=== PATIENT | male | born 1975 | race American Indian/Alaskan Native ===

== ENCOUNTER 2019-09-07 12:04 | Emergency (ER) | payer SELFPAY ==
[2019-09-07 12:09] VITALS: BP 164/92
--- NOTE | 2019-09-07 12:31 | Emergency Department Report ---
Chief Complaint: Psych Stated Complaint: MEDICAL CLEARANCE Time Seen by Provider: 09/07/19 12:14 - HPI History of Present Illness: This is a 44-year-old male nontoxic, well in appearance with no signs of distress presents to the ED for medication refill. Patient stated [place] state and has not taken his psych or blood pressure medications. Patient denies any SI/HI. Patient stated he is asymptotic. Denies hearing voices. Patient stated he is not remember his medications name or dosage. Patient denies any urinary symptoms. Patient denies any fever, chills, headache, nausea, vomiting, chest pain or shortness of breathe. Denies any other symptoms or complaints. Denies any allergies or PMH. - Exam Vital Signs: Vital Signs 09/07/19 12:08 Temperature 98.0 F Pulse Rate 90 Respiratory 16 Rate Blood Pressure 164/92 O2 Sat by Pulse 99 Oximetry Physical Exam: No SI/HI. Normal affect. No visual or auditory hallucinations. Denies any symptoms. MSE screening note: Focused history and physical exam performed. Due to findings the following was ordered: ED Medical Decision Making - Medical Decision Making 44-year-old male that presents with medications refill. Patient does not know the medication name or dosages that he takes. Patient was given a phone to call his for medication names and dosages. RN stated to me that patient ELOPED. I had the tech to see if patient is outside to bring him back but patient was not there. Patient ELOPED. I did get in touch with Mrs. Toure () at [phone] and was told to have patient come back for further evaluation and medication refill. ED Disposition for MSE Clinical Impression: Medication refill Disposition: Z-07 ELOPED Condition: Stable
== END 2019-09-07 12:35 | disposition left against medical advice (07) ==
LOC: ED 12:04
DX: F32.89 Other specified depressive episodes (principal); Z76.0 Encounter for issue of repeat prescription
CPT/HCPCS: 99281

== ENCOUNTER 2019-09-08 11:49 | Emergency (ER) | payer SELFPAY ==
[2019-09-08 11:58] VITALS: BP 159/104
--- NOTE | 2019-09-08 12:19 | Emergency Department Report ---
ED Recheck HPI - General Chief Complaint: Medical Clearance Stated Complaint: BI POLAR Time Seen by Provider: 09/08/19 12:13 Source: patient Mode of arrival: Ambulatory Limitations: No Limitations - History of Present Illness Initial Comments: This is a 44-year-old male nontoxic, well nourished in appearance, no acute signs of distress presents to the ED for medications refill. Patient denies any SI/HI. Patient was here yesterday and ELOPEd. Denies any new symptoms. Denies any chest pain, shortness of breathe, fever, chills, headache, stiff neck, numbness, tingling. Patient denies any allergies. Patient has all his medications list for refill. -: days(s) Returns Today for: request for prescription Symptoms Since Prior Visit: no new symptoms Associated Symptoms: none. denies: fever, chills, chest pain, shortness of breath, rash, malaise, nasuea, abdominal pain - Related Data Allergies Allergy/AdvReac Type Severity Reaction Status Date / Time No Known Allergies Allergy Unverified 09/07/19 12:07 ED Review of Systems ROS: Stated complaint: BI POLAR Other details as noted in HPI Constitutional: denies: chills, fever Eyes: denies: eye pain, eye discharge, vision change ENT: denies: ear pain, throat pain Respiratory: denies: cough, shortness of breath, wheezing Cardiovascular: denies: chest pain, palpitations Endocrine: no symptoms reported Gastrointestinal: denies: abdominal pain, nausea, diarrhea Genitourinary: denies: urgency, dysuria Musculoskeletal: denies: back pain, joint swelling, arthralgia Skin: denies: rash, lesions Neurological: denies: headache, weakness, paresthesias Psychiatric: denies: anxiety, depression Hematological/Lymphatic: denies: easy bleeding, easy bruising ED Past Medical Hx - Past Medical History Previous Medical History?: Yes Hx Hypertension: Yes Hx Psychiatric Treatment: Yes (Bi polar) - Surgical History Past Surgical History?: No - Social History Smoking Status: Never Smoker Substance Use Type: Alcohol, Marijuana ED Physical Exam - General Limitations: No Limitations General appearance: alert, in no apparent distress - Head Head exam: Present: atraumatic, normocephalic - Eye Eye exam: Present: normal appearance - Neck Neck exam: Present: normal inspection, full ROM - Respiratory Respiratory exam: Present: normal lung sounds bilaterally. Absent: respiratory distress, wheezes, rales, rhonchi, stridor, chest wall tenderness, accessory muscle use, decreased breath sounds, prolonged expiratory - Cardiovascular Cardiovascular Exam: Present: regular rate, normal rhythm, normal heart sounds. Absent: bradycardia, tachycardia, irregular rhythm, systolic murmur, diastolic murmur, rubs, gallop - Extremities Exam Extremities exam: Present: normal inspection, full ROM - Back Exam Back exam: Present: normal inspection, full ROM - Neurological Exam Neurological exam: Present: alert, oriented X3, normal gait - Psychiatric Psychiatric exam: Present: normal affect, normal mood - Skin Skin exam: Present: warm, dry, intact, normal color. Absent: rash ED Course Vital Signs 09/08/19 11:55 Temperature 98.4 F Pulse Rate 71 Respiratory 18 Rate Blood Pressure 159/104 O2 Sat by Pulse 98 Oximetry - Reevaluation(s) Reevaluation #1: 09/08/19 12:17 Patient is speaking in full sentences with no signs of distress noted. ED Recheck MDM - Medical Decision Making 44-year-old male the presents with medication refill. Patient is stable and was examined by me. Patient has been refilled with proper dosages as patients medicaiotn list stated. Patient was given referrals to follow-up with primary care doctor and [facility]. At time of discharge, the patient does not seem toxic or ill in appearance. No acute signs of distress noted. Patient agrees to discharge treatment plan of care. No further questions noted by the patient. Critical care attestation.: If time is entered above; I have spent that time in minutes in the direct care of this critically ill patient, excluding procedure time. ED Disposition Clinical Impression: Medication refill Disposition: - MED SCREENING EXAM-LEFT Is pt being admited?: No Does the pt Need Aspirin: No Condition: Stable Additional Instructions: Follow-up with a primary care doctor in 3-5 days or if symptoms worsen and continue return to emergency room as soon as possible. Referrals: PRIMARY CAREMD [Referring] - 3-5 Days MALIK GONZALEZ MD [Staff Physician] - 3-5 Days [facility] [Outside] - 3-5 Days
== END 2019-09-08 12:44 | disposition left against medical advice (07) ==
LOC: ED 11:49
DX: I10 Essential (primary) hypertension (principal); F31.9 Bipolar disorder, unspecified; F12.20 Cannabis dependence, uncomplicated; Z76.0 Encounter for issue of repeat prescription
CPT/HCPCS: 99282

== ENCOUNTER 2020-06-25 22:42 | Emergency (ER) | payer SELFPAY ==
[2020-06-26 01:46] LABS: Basophils % (Auto) 0.3 % (0.0-1.8); Eosinophils # (Auto) 0.2 K/mm3 (0.0-0.4); Eosinophils % (Auto) 1.7 % (0.0-4.3); Hematocrit 44.2 % (35.5-45.6); Hemoglobin 15.3 gm/dl (11.8-15.2); Lymphocytes # (Auto) 3.2 K/mm3 (1.2-5.4); Lymphocytes % (Auto) 30.2 % (13.4-35.0); Mean Corpuscular HGB Conc 35 % (32-34); Mean Corpuscular Volume 85 fl (84-94); Monocytes # (Auto) 0.6 K/mm3 (0.0-0.8); Monocytes % (Auto) 5.8 % (0.0-7.3); Platelet Count 227 K/mm3 (140-440); Red Blood Count 5.22 M/mm3 (3.65-5.03); Red Cell Distribution Width 14.9 % (13.2-15.2)
[2020-06-26 02:04] LABS: BUN/Creatinine Ratio 11; Blood Urea Nitrogen 11 mg/dL (9-20); Calcium 10.1 mg/dL (8.4-10.2); Hemolysis Index 7
[2020-06-26 02:58] LABS: Bilirubin,Urine NEG (Negative); Blood,Urine NEG (Negative); Color,Urine Yellow (Yellow); Mucus,Urine FEW /HPF; Protein,Urine <15 mg/dL mg/dL (Negative)
[2020-06-26 03:04] LABS: Amphetamine Screen,Urine Negative; Benzodiazepines Screen,Urine Negative; Methadone Screen,Urine Negative; Opiate Screen,Urine Negative
[2020-06-26] MEDS ORDERED: HALOPERIDOL LACTATE 5 MG/1 ML INJ IM PRN (03:14)
[2020-06-26] MEDS ORDERED: LORazepam 2 MG/ML VIAL IM PRN (03:14)
[2020-06-26] MEDS ORDERED: ALPRAZolam 1 MG TAB PO ONE (03:16)
--- NOTE | 2020-06-26 03:18 | Emergency Department Report ---
ED General Adult HPI - General Chief complaint: Psych Stated complaint: psych PUI?: No Time Seen by Provider: 06/26/20 03:00 Source: patient, RN notes reviewed, old records reviewed Mode of arrival: Ambulatory Limitations: Other (Acute psychosis) - History of Present Illness Initial comments: The patient was evaluated in the emergency department for symptoms described in the history of present illness. He/she was evaluated in the context of the global COVID-19 pandemic, which necessitated consideration that the patient migh t be at risk for infection with the virus that causes COVID-19. Institutional protocols and algorithms that pertain to the evaluation of patients at risk for COVID-19 are in a state of rapid change based on information released by regulatory bodies including the CDC and federal and state organizations. These policies and algorithms were followed during the patient's care in the emergency department. Please note that these policies, procedures and recommendations changed on a rapid basis. The patient is a 44-year-old gentleman. He presents to the ER with a request for psychiatric evaluation. He states that he is "off my medications", and reports hallucinations, suicidality, and indicates that he attempted to overdose approximately 2 days ago. He denies physical pain. He does not know what he "overdosed" on, but states "it was psychotropic medication." He denies headache, neck pain, chest pain, abdominal pain, shortness of breath, urinary symptoms, loss of taste and loss of smell. He states that he walked here. He does not have a primary doctor that he is aware of. He does not describe the exacerbating nature of his symptoms, qualitative nature of his symptoms, relieving factors, aggravating factors, etc. He is not accompanied by friends or family at this time for additional information or collateral information. He reports he is experiencing hallucinations -: Gradual Quality: other Consistency: other Improves with: other Worsens with: other Associated Symptoms: other - Related Data Allergies Allergy/AdvReac Type Severity Reaction Status Date / Time No Known Allergies Allergy Unverified 09/07/19 12:07 ED Review of Systems ROS: Stated complaint: MED REFILL(BIPOLAR) Other details as noted in HPI Constitutional: denies: fever Eyes: denies: eye discharge ENT: denies: epistaxis Respiratory: denies: cough Cardiovascular: denies: syncope Gastrointestinal: denies: abdominal pain Genitourinary: denies: dysuria Psychiatric: anxiety, auditory hallucinations, visual hallucinations, suicidal thoughts ED Past Medical Hx - Past Medical History Previous Medical History?: Yes Hx Hypertension: Yes Hx Psychiatric Treatment: Yes (Bi polar) - Surgical History Past Surgical History?: No - Social History Smoking Status: Current Some Day Smoker ED Physical Exam - General Limitations: Other (Acute psychosis) General appearance: anxious - Head Head exam: Present: atraumatic, normocephalic - Eye Eye exam: Present: normal appearance, EOMI. Absent: nystagmus - ENT ENT exam: Present: normal exam, normal orophraynx, mucous membranes moist, normal external ear exam - Neck Neck exam: Present: normal inspection, full ROM. Absent: tenderness, meningismus - Respiratory Respiratory exam: Present: normal lung sounds bilaterally. Absent: respiratory distress, wheezes, rales, rhonchi, stridor, accessory muscle use, decreased breath sounds - Cardiovascular Cardiovascular Exam: Present: regular rate, normal rhythm, normal heart sounds. Absent: bradycardia, tachycardia, irregular rhythm, systolic murmur, diastolic murmur, rubs, gallop - GI/Abdominal GI/Abdominal exam: Present: soft. Absent: distended, tenderness, guarding, rebound, rigid, pulsatile mass - Rectal Rectal exam: Present: deferred - Extremities Exam Extremities exam: Present: normal inspection, full ROM, other (2+ pulses noted in the bilateral upper extremities. There is no long bony tenderness. The muscular compartments are soft.) - Back Exam Back exam: Present: normal inspection, full ROM. Absent: tenderness, CVA tenderness (R), CVA tenderness (L), paraspinal tenderness, vertebral tenderness - Neurological Exam Neurological exam: Present: alert, normal gait, other (No facial droop. Tongue midline. Extraocular movements intact bilaterally. Facial sensation intact to light touch in V1, V2, V3 distribution bilaterally. 5 and a 5 strength in 4 extremities. Sensation intact to light touch in 4 extremities.) - Psychiatric Psychiatric exam: Present: anxious, suicidal ideation - Skin Skin exam: Present: warm, dry, intact, normal color. Absent: rash ED Course Vital Signs 06/26/20 06/26/20 00:27 03:02 Temperature 98.4 F 98.2 F Pulse Rate 81 91 H Respiratory 17 18 Rate Blood Pressure 193/113 Blood Pressure 116/66 [Left] O2 Sat by Pulse 95 97 Oximetry - Reevaluation(s) Reevaluation #1: 06/26/20 03:24 Differential diagnosis, including but not limited to: Acute psychosis, medical clearance for psychiatric placement Assessment and plan: 44-year-old gentleman, with a GCS of 15, nonfocal motor exam, speaking in full sentences, protecting his airway, with a benign and unremarkable physical examination, with the exception of elevated blood pressure, here with acute psychosis. He is placed on 1013. Screening laboratory studies ordered, so far unremarkable. Do not clinically suspect Covid, however, have ordered Covid screening test, in anticipation of psychiatric placement. EKG pending at this time, 1013 form filled out by myself, and psychiatric consultation is requested. Please reference the [employer] clinical policy on asymptomatic hypertension/elevated blood pressure. At this point in time, assuming unremarkable EKG, patient does not appear to have an immediate medical contraindication to psychiatric admission, evaluation, consultation, and placement. ED Medical Decision Making - Lab Data Result diagrams: 06/26/20 01:17 06/26/20 01:17 Vital Signs 06/26/20 06/26/20 00:27 03:02 Temperature 98.4 F 98.2 F Pulse Rate 81 91 H Respiratory 17 18 Rate Blood Pressure 193/113 Blood Pressure 116/66 [Left] O2 Sat by Pulse 95 97 Oximetry Lab Results 06/26/20 06/26/20 06/26/20 Range/Units 01:17 01:17 01:17 WBC (4.5-11.0) K/mm3 RBC (3.65-5.03) M/mm3 Hgb (11.8-15.2) gm/dl Hct (35.5-45.6) % MCV (84-94) fl MCH (28-32) pg MCHC (32-34) % RDW (13.2-15.2) % Plt Count (140-440) K/mm3 Lymph % (Auto) (13.4-35.0) % Buchanan % (Auto) (0.0-7.3) % Eos % (Auto) (0.0-4.3) % Baso % (Auto) (0.0-1.8) % Lymph # (Auto) (1.2-5.4) K/mm3 Buchanan # (Auto) (0.0-0.8) K/mm3 Eos # (Auto) (0.0-0.4) K/mm3 Baso # (Auto) (0.0-0.1) K/mm3 Seg Neutrophils % (40.0-70.0) % Seg Neutrophils # (1.8-7.7) K/mm3 Sodium 140 (137-145) mmol/L Potassium 4.1 (3.6-5.0) mmol/L Chloride 103.4 (98-107) mmol/L Carbon Dioxide 24 (22-30) mmol/L Anion Gap 17 mmol/L BUN 11 (9-20) mg/dL Creatinine 1.0 (0.8-1.3) mg/dL Estimated GFR > 60 ml/min BUN/Creatinine Ratio 11 % Glucose 100 (75-100) mg/dL Calcium 10.1 (8.4-10.2) mg/dL Urine Color (Yellow) Urine Turbidity (Clear) Urine pH (5.0-7.0) Ur Specific Hendricks (1.003-1.030) Urine Protein (Negative) mg/dL Urine Glucose (UA) (Negative) mg/dL Urine Ketones (Negative) mg/dL Urine Blood (Negative) Urine Nitrite (Negative) Urine Bilirubin (Negative) Urine Urobilinogen (<2.0) mg/dL Ur Leukocyte Esterase (Negative) Urine WBC (Auto) (0.0-6.0) /HPF Urine RBC (Auto) (0.0-6.0) /HPF Urine Mucus /HPF Salicylates < 0.3 L (2.8-20.0) mg/dL Urine Opiates Screen Urine Methadone Screen Acetaminophen 5.0 L (10.0-30.0) ug/mL Ur Barbiturates Screen Ur Phencyclidine Scrn Ur Amphetamines Screen U Benzodiazepines Scrn Plasma/Serum Alcohol (0-0.07) % 06/26/20 06/26/20 06/26/20 Range/Units 01:17 01:17 02:20 WBC 10.7 (4.5-11.0) K/mm3 RBC 5.22 H (3.65-5.03) M/mm3 Hgb 15.3 H (11.8-15.2) gm/dl Hct 44.2 (35.5-45.6) % MCV 85 (84-94) fl MCH 29 (28-32) pg MCHC 35 H (32-34) % RDW 14.9 (13.2-15.2) % Plt Count 227 (140-440) K/mm3 Lymph % (Auto) 30.2 (13.4-35.0) % Buchanan % (Auto) 5.8 (0.0-7.3) % Eos % (Auto) 1.7 (0.0-4.3) % Baso % (Auto) 0.3 (0.0-1.8) % Lymph # (Auto) 3.2 (1.2-5.4) K/mm3 Buchanan # (Auto) 0.6 (0.0-0.8) K/mm3 Eos # (Auto) 0.2 (0.0-0.4) K/mm3 Baso # (Auto) 0.0 (0.0-0.1) K/mm3 Seg Neutrophils % 62.0 (40.0-70.0) % Seg Neutrophils # 6.7 (1.8-7.7) K/mm3 Sodium (137-145) mmol/L Potassium (3.6-5.0) mmol/L Chloride (98-107) mmol/L Carbon Dioxide (22-30) mmol/L Anion Gap mmol/L BUN (9-20) mg/dL Creatinine (0.8-1.3) mg/dL Estimated GFR ml/min BUN/Creatinine Ratio % Glucose (75-100) mg/dL Calcium (8.4-10.2) mg/dL Urine Color Yellow (Yellow) Urine Turbidity Clear (Clear) Urine pH 5.0 (5.0-7.0) Ur Specific Hendricks 1.016 (1.003-1.030) Urine Protein <15 mg/dl (Negative) mg/dL Urine Glucose (UA) Neg (Negative) mg/dL Urine Ketones Neg (Negative) mg/dL Urine Blood Neg (Negative) Urine Nitrite Neg (Negative) Urine Bilirubin Neg (Negative) Urine Urobilinogen 4.0 (<2.0) mg/dL Ur Leukocyte Esterase Neg (Negative) Urine WBC (Auto) 1.0 (0.0-6.0) /HPF Urine RBC (Auto) 1.0 (0.0-6.0) /HPF Urine Mucus Few /HPF Salicylates (2.8-20.0) mg/dL Urine Opiates Screen Urine Methadone Screen Acetaminophen (10.0-30.0) ug/mL Ur Barbiturates Screen Ur Phencyclidine Scrn Ur Amphetamines Screen U Benzodiazepines Scrn Plasma/Serum Alcohol < 0.01 (0-0.07) % 06/26/20 Range/Units 02:20 WBC (4.5-11.0) K/mm3 RBC (3.65-5.03) M/mm3 Hgb (11.8-15.2) gm/dl Hct (35.5-45.6) % MCV (84-94) fl MCH (28-32) pg MCHC (32-34) % RDW (13.2-15.2) % Plt Count (140-440) K/mm3 Lymph % (Auto) (13.4-35.0) % Buchanan % (Auto) (0.0-7.3) % Eos % (Auto) (0.0-4.3) % Baso % (Auto) (0.0-1.8) % Lymph # (Auto) (1.2-5.4) K/mm3 Buchanan # (Auto) (0.0-0.8) K/mm3 Eos # (Auto) (0.0-0.4) K/mm3 Baso # (Auto) (0.0-0.1) K/mm3 Seg Neutrophils % (40.0-70.0) % Seg Neutrophils # (1.8-7.7) K/mm3 Sodium (137-145) mmol/L Potassium (3.6-5.0) mmol/L Chloride (98-107) mmol/L Carbon Dioxide (22-30) mmol/L Anion Gap mmol/L BUN (9-20) mg/dL Creatinine (0.8-1.3) mg/dL Estimated GFR ml/min BUN/Creatinine Ratio % Glucose (75-100) mg/dL Calcium (8.4-10.2) mg/dL Urine Color (Yellow) Urine Turbidity (Clear) Urine pH (5.0-7.0) Ur Specific Hendricks (1.003-1.030) Urine Protein (Negative) mg/dL Urine Glucose (UA) (Negative) mg/dL Urine Ketones (Negative) mg/dL Urine Blood (Negative) Urine Nitrite (Negative) Urine Bilirubin (Negative) Urine Urobilinogen (<2.0) mg/dL Ur Leukocyte Esterase (Negative) Urine WBC (Auto) (0.0-6.0) /HPF Urine RBC (Auto) (0.0-6.0) /HPF Urine Mucus /HPF Salicylates (2.8-20.0) mg/dL Urine Opiates Screen Negative Urine Methadone Screen Negative Acetaminophen (10.0-30.0) ug/mL Ur Barbiturates Screen Negative Ur Phencyclidine Scrn Negative Ur Amphetamines Screen Negative U Benzodiazepines Scrn Negative Plasma/Serum Alcohol (0-0.07) % - EKG Data -: EKG Interpreted by Me EKG shows normal: sinus rhythm Rate: normal - EKG Data When compared to previous EKG there are: previous EKG unavailable 06/26/20 03:41 Sinus rhythm, 69 bpm, normal axis, normal intervals, high left ventricular voltage. This EKG is not a STEMI. There is no prior for comparison. Critical care attestation.: If time is entered above; I have spent that time in minutes in the direct care of this critically ill patient, excluding procedure time. ED Disposition Clinical Impression: Psychosis, Medical clearance for psychiatric admission Disposition: [id number]/[id number] PSY HOSP/PSY UNIT Is pt being admited?: No Does the pt Need Aspirin: No Condition: Good Referrals: PRIMARY CARE, [Primary Care Provider] - 3-5 Days
[2020-06-26 03:31] LABS: Cannabinoid Screen,Urine Positive; Cocaine Screen,Urine Positive
[2020-06-27 07:17] VITALS: BP 162/110
--- NOTE | 2020-06-27 09:17 | Consultation ---
History of Present Illness - Reason for Consult Consult date: 06/27/20 Reason for consult: MHE Requesting physician: CHI RODRIGUEZ - History of Present Psychiatric Illness Per ED Provider: The patient is a 44-year-old gentleman. He presents to the ER with a request for psychiatric evaluation. He states that he is "off my medications", and reports hallucinations, suicidality, and indicates that he attempted to overdose approximately 2 days ago. He denies physical pain. He does not know what he "overdosed" on, but states "it was psychotropic medication." He denies headache, neck pain, chest pain, abdominal pain, shortness of breath, urinary symptoms, loss of taste and loss of smell. He states that he walked here. He does not have a primary doctor that he is aware of. He does not describe the exacerbating nature of his symptoms, qualitative nature of his symptoms, relieving factors, aggravating factors, etc. He is not accompanied by friends or family at this time for additional information or co llateral information. 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 Patient reported he feels that his is hiding men inn the house and when he leaves to go to work all the men start coming out and have an affair with his . Patient reports whenever he thinks about this, he gets sad vision translates into anger and increased aggressiveness. Patient also admits desire ideation peer PAST PSYCHIATRIC HISTORY Diagnoses: bipolar schizophrenia Suicide attempts or Self-harm behavior: yes Prior psychiatric hospitalizations: yes Substance Abuse history: cocaine marijuana Previous psychiatric medications tried: non compliant and unknown Outpatient treatment: PAST MEDICAL HISTORY: none reported Family Psychiatric History: None reported or documented SOCIAL HISTORY Marital Status: Living Arrangements: With Employment Status: Employed Access to guns/weapons: College drop Education: College dropout History of Abuse: None reported Legal History: Yes REVIEW OF SYSTEMS Constitutional: Negative for weight loss ENT: Negative for stridor Respiratory: Negative for cough or hemoptysis All other systems reviewed and are negative MENTAL STATUS EXAMINATION General Appearance and Behavior: Age appropriate, good hygiene, wearing appropriate clothes, good eye contact, cooperative polite with questioning. Cooperation: Participating/engaged Psychomotor Behavior: unremarkable and within normal limits Mood: Sad Affect and affective range: congruent with mood Thought Process: Illogical, delusional Thought Content: Paranoid Speech: Normal volume, Regular rate and rhythm, Intellectual Functioning: Average Suicidal Ideation: SI Homicidal Ideation: Denies HI Impulse Control: Unimpaired Insight and Judgment: Normal insight and judgment, Memory: Normal, Attention: Normal, Orientation: Alert, oriented, Diagnoses: Assessment and Plan - Psychiatric problem (1) Schizoaffective disorder Status: Acute Treatment Plan MEDICATIONS: Patient has been transferred to another facility now Risks, benefits and alternatives of medications discussed with the patient, questions answered and consent obtained from patient. PSYCHOTHERAPY: Supportive psychotherapy provided MEDICAL: Per primary team DELIRIUM PRECAUTIONS: Please re-orient patient frequently, keep lights on during the day, and minimize benzodiazepines and opiates as these medications could worsen patient's confusion. MASTIC SPRAYER: DISPOSITION: Do Not Recommend acute inpatient psychiatric hospitalization at this time LEGAL STATUS: 1013 FOLLOW-UP: Will follow Thank you for the consult. Please contact with any questions and/or concerns. Medications and Allergies Allergies Allergy/AdvReac Type Severity Reaction Status Date / Time No Known Allergies Allergy Unverified 09/07/19 12:07 Home Medications Medication Instructions Recorded Confirmed Last Taken Type Unobtainable 06/26/20 06/26/20 Unknown History Active Meds: Active Medications Haloperidol Lactate (Haldol) 5 mg IM Q6HR PRN PRN Reason: Agitation Lorazepam (Ativan) 2 mg IM Q4HR PRN PRN Reason: Agitation Mental Status Exam - Vital signs Last Vital Signs Temp 98.9 F 06/27/20 07:16 Pulse 91 H 06/27/20 07:16 Resp 18 06/27/20 07:16 BP 162/110 06/27/20 07:16 Pulse Ox 98 06/27/20 07:16 Results Result Diagrams: 06/26/20 01:17 06/26/20 01:17 All other labs normal. Assessment and Plan - Psychiatric problem (1) Schizoaffective disorder Status: Acute
== END 2020-06-27 10:20 ==
LOC: ED 22:42
DX: F23 Brief psychotic disorder (principal); Z20.828 Contact with and (suspected) exposure to other viral communicable diseases; I10 Essential (primary) hypertension; F31.9 Bipolar disorder, unspecified; F17.200 Nicotine dependence, unspecified, uncomplicated
CPT/HCPCS: 36415; 80048; 80307; 81001; 82550; 83735; 85025; 99285; U0003; 80320; G0480